=== PATIENT | female | born 1970 | race Caucasian/White ===

== ENCOUNTER → 2016-07-25 06:35 | Day surgery (SDC) | payer OTHER ==
--- NOTE | 2016-07-21 13:01 | HP ---
PREOPERATIVE HISTORY AND PHYSICAL EXAM: DATE OF OFFICE VISIT/ENCOUNTER: 07/21/16 DATE OF SURGERY/ADMISSION: 07/25/16 [facility] ATTENDING SURGEON: Edna Florentino MD. PROCEDURE: Right middle finger trigger release, right elbow lateral release, left ring finger trigger release. CHIEF COMPLAINT: Right middle finger and left ring finger triggering, right elbow pain. HISTORY OF PRESENT ILLNESS: This is a 46-year-old female who has had pain at the lateral aspect of her right elbow for sometime now. She is also complaining of right middle finger locking and left ring finger locking. She has failed conservative treatment for her right elbow including physical therapy for approximately a year and cortisone injection. Unfortunately, the symptoms persist. She has also had a cortisone injection for her right middle finger trigger finger; however, symptoms returned after approximately 2 months. She has had no injections for the left ring finger. She is interested in pursuing permanent solution for these problems at this time in the form of surgical intervention. She has consented to proceed with the right middle finger trigger release or right elbow lateral release and left ring finger trigger release. PAST MEDICAL HISTORY: Significant for thyroid issues. PAST SURGICAL HISTORY: 1. Tubal ligation. 2. Partial thyroidectomy. 3. Breast lumpectomy. CURRENT MEDICATIONS: 1. Lysine 500 mg 1 tab daily p.r.n. cyst. 2. Bupropion HCL daily. The patient is taking this medication for smoking cessation. 3. Vitamin D daily. ALLERGIES: No known drug allergies. FAMILY MEDICAL HISTORY: Significant for heart disease and stroke. 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 She does admit to smoking for at least 20 years. She smokes a pack per day and does admit to occasional marijuana use. Denies alcohol use. REVIEW OF SYSTEMS: General: Positive for night sweats. Negative for fevers or chills. No known anesthesia problems in the past. HEENT: Negative for headache, lightheadedness, or syncopal episodes. Integumentary: Negative for abrasions, lesions, or open wounds. Cardiothoracic: Negative for chest pain, palpitations, or edema. Negative for hypertension. Pulmonary: Negative for shortness of breath with exertion, chronic cough, or COPD. GI: Negative for nausea, vomiting, diarrhea, constipation or GERD. : Negative for nocturia, urinary frequency, urgency, history of UTIs, or kidney problems. Musculoskeletal: Positive for current complaint. Negative for chronic or intermittent back pain or history of fractures. Neurological: Negative for paresthesias, numbness, history of seizures, stroke, or epilepsy. Endocrine: Positive for history of thyroid issues. Negative for diabetes. Hematologic: Negative for easy bruising, anemia, excessive bleeding, or history of DVT. Infectious Disease: Negative for history of MRSA, hepatitis C, or HIV. PHYSICAL EXAMINATION GENERAL: Well-developed, well-nourished 46-year-old female, in no acute distress. VITALS SIGNS: Height 5 feet 2 inches, weight 94 pounds, pulse rate 60, blood pressure 98/56. HEENT: Normocephalic, atraumatic. Pupils are equal, round, and reactive to light and accommodation. Extraocular movements are intact. NECK: Supple. No palpable lymph nodes. Throat is clear. CARDIOVASCULAR: Regular rate and rhythm. S1 and S2. No murmurs, rubs, or gallops. No edema. PULMONARY: Lungs are clear to auscultation bilaterally. No wheezes, rales, or rhonchi. ABDOMEN: Positive bowel sounds, soft, nontender. MUSCULOSKELETAL: On exam of the right upper extremity, there is tenderness to palpation at the lateral epicondyle. Increased pain with wrist extension and middle finger extension against resistance. Mild increasing pain with supination against resistance. She has full flexion at the fingers and full extension but triggering in the right middle finger with return to extension. She also has tenderness at the A1 coral of the right middle finger. Neurovascular function is intact. On exam of the left upper extremity left hand , there is tenderness and palpation at the A1 coral of the ring finger. She has locking with flexion and triggering with return to full extension. Skin is intact. Neurovascular function is intact. NEUROLOGICAL: Alert and oriented x3. Cranial nerves II through XII are intact. Sensation is intact to light touch. DIAGNOSTIC STUDIES: Imaging studies of the right elbow AP, lateral, and oblique are unremarkable. ASSESSMENT: Right lateral epicondylitis, right middle finger and left ring finger trigger finger. PLAN: The patient is scheduled to undergo a right middle finger trigger release , right elbow lateral release, and left ring finger trigger release with Dr. Florentino on 07/25/16. She will return to the office 10 to 14 days postop for followup and suture removal. A prescription for T[place] was e-scribed to the patient's pharmacy for postoperative pain management. SELVIN COLLINS [id number]/CPS #: [id number] MTDD
[~2016-07-25 06:35] MED LIST: Acetaminophen TAB* 325 MG PO PRN; Buffered Lidocaine 1% SYR 3ML* 3 ML/SYR SYRINGE INTRADERM ONE; Buffered Lidocaine 1% SYR 3ML* 3 ML/SYR SYRINGE ONE; Bupivacaine 0.5% SDV PF* 30 ML VIAL ONE; Dexamethasone IV* 4 MG/ML 1 ML (4 MG) ONE; DiMENhydriNATE IV* 50 MG/ML VIAL IV PUSH PRN; EPHEDrine (Pressors)* 50 MG/ML VIAL ONE; Famotidine IV* 10 MG/ML 2 ML (20 mg) IV ONE; Famotidine IV* 10 MG/ML 2 ML (20 mg) ONE; HYDROmorphone INJ* 1 MG/ML CARPUJECT SYRINGE IV PRN; Ketorolac INJ* 30 MG/ML 1 ML VIAL ONE; Lidocaine 2% PF * 5 ML VIAL ONE; Midazolam* 1 MG/ML 5 ML VIAL (5 MG) ONE; Ondansetron INJ* 2 MG/ML VIAL ONE; Propofol* 10 MG/ML 20 ML BTL IV PUSH ONE; fentaNYL* 50 MCG/ML 2 ML VIAL (100 MCG VIAL) ONE; oxyCODONE/Acetamin 5/325 MG* TAB PO PRN
[2016-07-25 09:57] VITALS: BP 116/56
--- NOTE | 2016-07-27 06:24 | OP ---
DATE OF OPERATION: 07/25/16 - [facility] DATE OF : 68 SURGEON: Edna Florentino MD TUBE CLEANING OPERATOR: SELVIN Drew ANESTHESIOLOGIST: Juana Bermeo MD ANESTHESIA: General. PRE-OP DIAGNOSES: Trigger finger of the right middle finger and the left ring finger and also right lateral epicondylitis. POST-OP DIAGNOSES: Trigger finger of the right middle finger and the left ring finger and also right lateral epicondylitis. OPERATIVE PROCEDURE: Right elbow lateral release, trigger finger release of the right middle finger, trigger finger release of the left ring finger. ESTIMATED BLOOD LOSS: Zero. TOURNIQUET TIME: 20 minutes on the right, and 8 minutes on the left. INDICATION FOR PROCEDURE: Chayo is a 46-year-old woman who has locking of the left ring and right middle fingers that failed conservative treatment. She also has recalcitrant lateral epicondylitis on the right. She presents for operative treatment of all of the above. DESCRIPTION OF PROCEDURE: The patient was brought to the operating room, was given a general anesthetic and placed in the supine position on the operating table with tourniquet around both upper arms. Skin of her upper extremities was prepped and draped in the usual sterile fashion. The right upper extremity was exsanguinated and the tourniquet elevated to 250 mmHg. A longitudinal incision was made centered at the lateral epicondyle. We dissected through the subcutaneous tissue sharply down to the extensor supinator origin. A distally based U-shaped flap was created of the tendon origin and dissected off of the lateral epicondyle. The underlying degenerated tissue was debrided and sent for pathology. The lateral epicondyle was then debrided with a Rongeur and then the tendon after copious irrigation with saline was resutured with #1 Polysorb suture in lengthened fashion. The subcutaneous tissue was closed with 2-0 Polysorb and skin with skin andres. Next, a transverse incision was made centered over the A1 coral of the right middle finger. We dissected bluntly through the subcutaneous tissue digital neurovascular bundles were retracted A1 coral was incised longitudinally completely releasing the tendons which were in good condition. The wound was irrigated and the skin edges were reapproximated with 4-0 nylon suture. The wounds was dressed with Xeroform, 4x4, Webril, and an Sacha wrap. The tourniquet was released. The hand and forearm on the left were exsanguinated and tourniquet elevated to 250 mmHg. A transverse incision was made centered over the A1 coral of the left ring finger, dissected bluntly through the subcutaneous tissue. The digital neurovascular bundles were retracted and the A1 coral was incised longitudinally completely releasing the tendons which were in good condition. The wound was irrigated and the skin edges reapproximated with 4-0 nylon suture. The wound was dressed with Xeroform, 4x4 , Webril, and an Sacha wrap. The patient tolerated the procedure well and was brought to the recovery room in good condition. [id number]/[facility] #: [id number] CADEN
== END | disposition home or self-care (01) ==
LOC: OREAST 06:35
PROVIDERS: ATTEND Orthopaedic Surgery
DX: M77.11 Lateral epicondylitis, right elbow (principal); M65.331 Trigger finger, right middle finger; M65.342 Trigger finger, left ring finger; F17.210 Nicotine dependence, cigarettes, uncomplicated
CPT/HCPCS: 88304; J1100; J1885; J2250; J2405; J2704; J3010

== ENCOUNTER 2017-05-25 14:05 | Emergency (ER) | payer OTHER ==
[2017-05-25 14:24] VITALS: BP 103/65
--- NOTE | 2017-05-25 15:09 | UC ---
Upper Extremity HPI - HPI Summary HPI Summary: Pt presents with right wrist pain. 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 She woke up this morning with pain in her right wrist at the base of her right thumb. She denies specific injury. 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 She has taken ibuprofen with mild relief. Denies numbness, tingling, radiation of pain, or weakness. - History of Current Complaint Chief Complaint: UCUpperExtremity Stated Complaint: RIGHT WRIST INJURY Hx Obtained From: Patient Onset/Duration: Sudden Onset Severity Initially: Mild Severity Currently: Mild Pain Intensity: 2 Pain Scale Used: 0-10 Numeric Character: Dull, Aching Aggravating Factor(s): Flexion, Extension, Internal/External Rotation, Abduction , Adduction Alleviating Factor(s): Ice Associated Signs And Symptoms: Positive: Negative - Allergies/Home Medications Allergies/Adverse Reactions: Allergies Allergy/AdvReac Type Severity Reaction Status Date / Time No Known Allergies Allergy Verified 07/25/16 06:47 Home Medications: Home Medications Ibuprofen [Advil] 400 mg PO 05/25/17 [History] PMH/Surg Hx/FS Hx/Imm Hx Previously Healthy: Yes - Surgical History Surgical History: Yes Surgery Procedure, Year, and Place: 2004 PARTIAL THYROIDECTOMY AND BILATERAL TUBAL LIGATION, [facility] [place]. 2009 LEFT BREAST LUMPECTOMY, BENIGN, [facility] [place]. rt elbow tendin itis release and 2 trigger finger release at the same time as the elbow - Social History Alcohol Use: None Substance Use Type: Marijuana Substance Use Comment - Amount & Last Used: once a month Smoking Status (MU): Heavy Every Day Tobacco Smoker Type: Cigarettes Amount Used/How Often: 1/2 - 3/4 PPD FOR ABOUT 25 YEARS Length of Time of Smoking/Using Tobacco: 25 YEARS Have You Smoked in the Last Year: Yes Cessation Counseling: Counseled 3+Min - 10 Min Review of Systems Constitutional: Negative Skin: Negative Neurovascular: Negative Musculoskeletal: Other: - Pain right wrist Neurological: Negative Psychological: Negative All Other Systems Reviewed And Are Negative: Yes Physical Exam Triage Information Reviewed: Yes Appearance: Well-Appearing, Well-Nourished Vital Signs: Initial Vital Signs Temp 98.6 F 12/11/17 14:21 Pulse 69 05/25/17 14:21 Resp 18 05/25/17 14:21 BP 103/65 05/25/17 14:21 Pulse Ox 100 05/25/17 14:21 Vital Signs Reviewed: Yes Respiratory: Positive: Chest non-tender, Lungs clear Cardiovascular: Positive: RRR, No Murmur Musculoskeletal: Positive: Strength Intact, ROM Intact - Including opposition., No Edema, Other: - TTP over anatomical snuffbox, dorsal CMC joint, and tendons about this area. ROM does not reproduce pain, however, ROM against resistance reproduces pain in this location. Neurological: Positive: Alert, Other: - Sensations intact right hand and all digits. Psychological: Positive: Age Appropriate Behavior Skin: Positive: Other - There is no pallor or ecchymosis.. Negative: rashes, significant lesion(s) Upper Extremity Course/Dx - Course Course Of Treatment: XR negative. Given her recent history of overuse without specific injury, I suspect de quervain's tenosynovitis. Rx for meloxicam and a thumb spica splint. Will provide the number for orthopedics to schedule a follow up if her symptoms worsen or do not improve within 7-10days. - Differential Dx/Diagnosis Differential Diagnosis/HQI/PQRI: Contusion, Fracture (Closed), Strain, Sprain Provider Diagnoses: de quervain's tenosynovitis right hand Discharge - Discharge Plan Condition: Stable Disposition: HOME Prescriptions: Meloxicam 7.5 mg PO BID PRN #20 tab PRN Reason: Pain Patient Education Materials: De Quervain Disease (ED) Referrals: Wale Peter MD [Primary Care Provider] - Edna Florentino MD [Medical Doctor] - If Needed Additional Instructions: If you develop a fever, SOB, chest pain, new or worsening symptoms - please call your PCP or go to the ED. 1) Rest, Ice, and wear the brace for your wrist/thumb as tolerated. I suggest wearing the brace while active or at work and having it off while resting at home. 2) May take Meloxicam twice a day as needed for pain 3) If your symptoms worsen or persist greater the 7-10 days, please call orthopedics at the number below for an appointment.
--- NOTE | 2017-05-25 15:46 | RAD ---
INDICATION: Right wrist pain. TECHNIQUE: 3 views of the right wrist were obtained. FINDINGS: The bones are in normal alignment. No fracture is seen. Joint spaces appear maintained. IMPRESSION: NEGATIVE EXAM.
== END 2017-05-25 16:00 | disposition home or self-care (01) ==
LOC: UCEAST 14:05
DX: M65.4 Radial styloid tenosynovitis [de Quervain] (principal); F17.210 Nicotine dependence, cigarettes, uncomplicated
CPT/HCPCS: 99213; G0463

== ENCOUNTER 2019-01-06 07:30 | Emergency (ER) | payer OTHER ==
[2019-01-06 07:48] VITALS: BP 143/73
--- NOTE | 2019-01-06 07:58 | UC ---
Throat Pain/Nasal Wes HPI - HPI Summary HPI Summary: sinus pain and pressure x 7 days nasal congestion , pnd, pressure on her maxillary sinuses bilaterally no sore throat , bilateral ear pressure + dry cough , no fever, no chills symptoms better with otc sinus medication , - History of Current Complaint Chief Complaint: UCGeneralIllness Stated Complaint: SINUS ISSUES Time Seen by Provider: 01/06/19 07:40 Hx Obtained From: Patient Onset/Duration: Gradual Onset, Lasting Days - 7, Still Present Severity: Moderate Pain Intensity: 0 Cough: Nonproductive Associated Signs & Symptoms: Positive: Sinus Discomfort, Nasal Discharge. Negative: Dysphagia, FB Sensation, Drooling, Wheezing, Hoarseness, Fever, Vomiting, Rash - Allergies/Home Medications Allergies/Adverse Reactions: Allergies Allergy/AdvReac Type Severity Reaction Status Date / Time No Known Allergies Allergy Verified 01/06/19 07:48 Home Medications: Home Medications Albuterol HFA INHALER* [Ventolin HFA Inhaler*] 2 puff INH Q4H PRN 01/06/19 [ History Confirmed 01/06/19] PMH/Surg Hx/FS Hx/Imm Hx Endocrine History: Thyroid Disease - Surgical History Surgical History: Yes Surgery Procedure, Year, and Place: 2004 PARTIAL THYROIDECTOMY AND BILATERAL TUBAL LIGATION, [facility] [place]. 2010 LEFT BREAST LUMPECTOMY, BENIGN, [facility] [place]. rt elbow tendin itis release and 2 trigger finger release at the same time as the elbow - Family History Known Family History: Negative: Diabetes - Social History Alcohol Use: None Substance Use Type: Marijuana Substance Use Comment - Amount & Last Used: once a month Smoking Status (MU): Heavy Every Day Tobacco Smoker Type: Cigarettes Amount Used/How Often: 1/2 - 3/4 PPD FOR ABOUT 25 YEARS Length of Time of Smoking/Using Tobacco: 25 YEARS Have You Smoked in the Last Year: Yes Review of Systems All Other Systems Reviewed And Are Negative: Yes Constitutional: Positive: Negative Skin: Positive: Negative Eyes: Positive: Negative ENT: Positive: Ear Ache, Nasal Discharge, Sinus Congestion, Sinus Pain/ Tenderness. Negative: Sore Throat Respiratory: Positive: Cough Cardiovascular: Positive: Negative Is Patient Immunocompromised?: No Physical Exam Triage Information Reviewed: Yes Appearance: Well-Appearing, No Pain Distress, Well-Nourished Vital Signs: Initial Vital Signs Temp 98.7 F 01/06/19 07:42 Pulse 63 01/06/19 07:42 Resp 20 01/06/19 07:42 BP 143/73 01/06/19 07:42 Pulse Ox 96 01/06/19 07:42 Vital Signs Reviewed: Yes Eye Exam: Normal Eyes: Positive: Conjunctiva Clear ENT: Positive: Normal ENT inspection, Hearing grossly normal, Pharynx normal, Nasal congestion, Nasal drainage, TMs normal, Sinus tenderness. Negative: TM bulging, TM dull, TM red, Tonsillar swelling, Tonsillar exudate Neck: Positive: Supple, Nontender, No Lymphadenopathy Respiratory: Positive: Chest non-tender, Lungs clear, Normal breath sounds Cardiovascular: Positive: RRR, No Murmur, Pulses Normal Skin Exam: Normal Throat Pain/Nasal Course/Dx - Differential Dx/Diagnosis Provider Diagnosis: Sinusitis Discharge - Sign-Out/Discharge Documenting (check all that apply): Patient Departure All imaging exams completed and their final reports reviewed: No Studies - Discharge Plan Condition: Stable Disposition: HOME Prescriptions: Amoxicillin/Clavulanate TAB* [Augmentin TAB 875*] 875 mg PO BID #20 tab Fluticasone NASAL SPRAY 50MCG* [Flonase NASAL SPRAY 50MCG*] 2 spray BOTH NARES DAILY #1 btl Patient Education Materials: Sinusitis (ED) Referrals: Wale Peter MD [Primary Care Provider] - If Needed - Billing Disposition and Condition Condition: STABLE Disposition: Home
== END 2019-01-06 08:02 | disposition home or self-care (01) ==
LOC: UCEAST 07:30
DX: J32.9 Chronic sinusitis, unspecified (principal); E07.9 Disorder of thyroid, unspecified; F17.210 Nicotine dependence, cigarettes, uncomplicated
CPT/HCPCS: 99212; G0463

== ENCOUNTER 2019-08-16 05:42 | Day surgery (SDC) | payer OTHER ==
[~2019-08-16 05:42] MED LIST changes: -Acetaminophen TAB* 325 MG PO PRN; -Buffered Lidocaine 1% SYR 3ML* 3 ML/SYR SYRINGE INTRADERM ONE; -Buffered Lidocaine 1% SYR 3ML* 3 ML/SYR SYRINGE ONE; +Buffered Lidocaine 1% SYRIN* 1 ML/SYRINGE INTRADERM ONE; -Bupivacaine 0.5% SDV PF* 30 ML VIAL ONE; -Dexamethasone IV* 4 MG/ML 1 ML (4 MG) ONE; -DiMENhydriNATE IV* 50 MG/ML VIAL IV PUSH PRN; -EPHEDrine (Pressors)* 50 MG/ML VIAL ONE; -Famotidine IV* 10 MG/ML 2 ML (20 mg) IV ONE; -Famotidine IV* 10 MG/ML 2 ML (20 mg) ONE; -HYDROmorphone INJ* 1 MG/ML CARPUJECT SYRINGE IV PRN; -Ketorolac INJ* 30 MG/ML 1 ML VIAL ONE; -Lidocaine 2% PF * 5 ML VIAL ONE; -Midazolam* 1 MG/ML 5 ML VIAL (5 MG) ONE; -Ondansetron INJ* 2 MG/ML VIAL ONE; -Propofol* 10 MG/ML 20 ML BTL IV PUSH ONE; -fentaNYL* 50 MCG/ML 2 ML VIAL (100 MCG VIAL) ONE; -oxyCODONE/Acetamin 5/325 MG* TAB PO PRN
[2019-08-16] MEDS ORDERED: Lactated Ringers 1000 ML Bag* 1,000 ML IV SCH (06:00)
[2019-08-16] MEDS ORDERED: ceFAZolin 2 GM in NS PREMIX(*) 2 GM/100 ML BAG IVPB ONE (06:08)
[2019-08-16] MEDS ORDERED: Lidocaine 2% PF * 5 ML VIAL ONE (07:02)
[2019-08-16] MEDS ORDERED: Midazolam* 1 MG/ML 5 ML VIAL (5 MG) ONE (07:02)
[2019-08-16] MEDS ORDERED: Propofol* 10 MG/ML 20 ML BTL ONE (07:02)
[2019-08-16] MEDS ORDERED: Ondansetron INJ* 2 MG/ML VIAL ONE (07:02)
[2019-08-16] MEDS ORDERED: Dexamethasone IV* 4 MG/ML 1 ML (4 MG) ONE (07:02)
[2019-08-16] MEDS ORDERED: fentaNYL* 50 MCG/ML 2 ML VIAL (100 MCG VIAL) ONE (07:02)
[2019-08-16] MEDS ORDERED: Methylene Blue 0.5 %* 50 MG/10 ML AMP IV ONE (07:05)
[2019-08-16] MEDS ORDERED: Bupivacaine 0.25% SDV PF* 10 ML VIAL INJ ONE (07:05)
[2019-08-16] MEDS ORDERED: Lidocaine 1% w EPI 1:100,000* MDV 20 ML VIAL ONE (07:05)
[2019-08-16] MEDS ORDERED: fentaNYL* 50 MCG/ML 2 ML VIAL (100 MCG VIAL) IV PRN (07:18)
[2019-08-16] MEDS ORDERED: Naloxone* 0.4 MG/ML 1 ML VIAL IV PRN (07:18)
[2019-08-16] MEDS ORDERED: Ondansetron INJ* 2 MG/ML VIAL IV PRN (07:18)
[2019-08-16] MEDS ORDERED: oxyCODONE/Acetamin 5/325 MG* TAB PO PRN (07:18)
[2019-08-16 08:42] VITALS: BP 89/64
== END 2019-08-16 09:03 | disposition home or self-care (01) ==
LOC: OR 05:42
PROVIDERS: ATTEND Plastic Surgery
DX: D03.4 Melanoma in situ of scalp and neck (principal); M81.0 Age-related osteoporosis without current pathological fracture; M19.90 Unspecified osteoarthritis, unspecified site; F17.210 Nicotine dependence, cigarettes, uncomplicated
CPT/HCPCS: 88305; J0690; J1100; J2250; J2405; J2704; J3010; J3490